=== PATIENT | female | born 1965 ===

== ENCOUNTER 2016-09-19 15:48 | Inpatient (IN) | payer OTHER ==
[~2016-09-19] VITALS: Ht 177.8 cm; Wt 119.7 kg
[2016-09-19] MEDS ORDERED: SODIUM CHLORIDE FLUSH 10ML SYR IVF ONE (16:30)
[2016-09-19 16:43] LABS: BLOOD UREA NITROGEN 17 mg/dL (7-18)
[2016-09-19] MEDS ORDERED: AMPICILLIN/SULBACTAM 3 GM in SODIUM CHLORIDE 0.9% 100 ML IV ONE (17:00)
[2016-09-19] MEDS ORDERED: BACITRACIN ZINC OINT 500U/GM, 0.9 GM ONE (17:11)
[2016-09-19] MEDS ORDERED: LISI-170 PO (19:26)
[2016-09-19] MEDS ORDERED: METF10002 PO (19:26)
[2016-09-19] MEDS ORDERED: long acting insulin SQ (19:26)
[2016-09-19] MEDS ORDERED: VANCOMYCIN PER PHARMACY MC PRN (20:00)
[2016-09-19 20:30] VITALS: BP 139/77
[2016-09-19] MEDS ORDERED: PHARMACOKINETIC CONSULTATION MC ONE (20:30)
[2016-09-19] MEDS ORDERED: PHARMACOKINETIC MONITORING MC PRN (20:30)
[2016-09-19] MEDS: ACETAMINOPHEN 325 MG TABLET PO PRN (22:38)
[2016-09-19] MEDS: SODIUM CHLORIDE 0.9% 1,000 ML IV SCH (22:44)
[2016-09-19] MEDS: VANCOMYCIN 1,800 MG in SODIUM CHLORIDE 0.9% 250 ML IV SCH (22:44)
[2016-09-19] MEDS: ENOXAPARIN 40 MG/0.4 ML SQ SCH (23:04)
[2016-09-19] MEDS: LISINOPRIL 5 MG TABLET PO SCH (23:05)
[2016-09-19] MEDS: INSULIN ASPART 100 UNITS/ML, PEN SQ-INSULIN SCH (23:19)
[2016-09-20] MEDS: PIPERACILLIN/TAZO/PMX 3.375GM 50 ML IV SCH ×4 (01:07→20:12)
[2016-09-20 05:14] LABS: BLOOD UREA NITROGEN 16 mg/dL (7-18)
[2016-09-20 07:57] VITALS: BP 132/72
[2016-09-20] MEDS: INSULIN ASPART 100 UNITS/ML, PEN SQ-INSULIN SCH ×4 (08:08→22:33)
[2016-09-20] MEDS ORDERED: INSULIN DETEMIR 100 UNITS/ML, PEN SQ-INSULIN SCH (09:00)
[2016-09-20] MEDS: LISINOPRIL 5 MG TABLET PO SCH ×2 (10:16→22:25)
[2016-09-20] MEDS: ACETAMINOPHEN 325 MG TABLET PO PRN ×3 (11:10→22:57)
[2016-09-20] MEDS: VANCOMYCIN 1,800 MG in SODIUM CHLORIDE 0.9% 250 ML IV SCH ×2 (11:11→22:56)
[2016-09-20] MEDS: SODIUM CHLORIDE 0.9% 1,000 ML IV SCH ×2 (11:11→22:25)
[2016-09-20 14:00] VITALS: BP 131/74
[2016-09-20 19:29] VITALS: BP 147/81
[2016-09-20] MEDS: ENOXAPARIN 40 MG/0.4 ML SQ SCH (22:25)
[2016-09-21] MEDS: PIPERACILLIN/TAZO/PMX 3.375GM 50 ML IV SCH ×3 (01:44→14:19)
[2016-09-21 04:46] VITALS: BP 151/93
[2016-09-21] MEDS: SODIUM CHLORIDE 0.9% 1,000 ML IV SCH (05:01)
[2016-09-21] MEDS: ACETAMINOPHEN 325 MG TABLET PO PRN (05:01)
[2016-09-21 05:12] LABS: BLOOD UREA NITROGEN 15 mg/dL (7-18)
[2016-09-21 05:15] LABS: ASPARTATE AMINO TRANSFERASE 6 U/L (15-37)
[2016-09-21 07:26] VITALS: BP 138/74
[2016-09-21] MEDS ORDERED: GADOBUTROL 10 MMOL/10 ML PFS ONE (08:28)
[2016-09-21] MEDS ORDERED: INSULIN DETEMIR 100 UNITS/ML, PEN SQ-INSULIN SCH (09:00)
[2016-09-21] MEDS: LISINOPRIL 5 MG TABLET PO SCH (09:04)
[2016-09-21] MEDS: INSULIN ASPART 100 UNITS/ML, PEN SQ-INSULIN SCH ×3 (09:04→17:09)
[2016-09-21] MEDS: VANCOMYCIN 1,800 MG in SODIUM CHLORIDE 0.9% 250 ML IV SCH (09:49)
[2016-09-21 13:20] VITALS: BP 127/73
[2016-09-21] MEDS ORDERED: INSU100I18 SQ-INSULIN (15:12)
[2016-09-21] MEDS ORDERED: LISI5TAB7 PO (15:12)
[2016-09-21] MEDS ORDERED: Vancomycin Per Pharmacy MC (15:12)
[2016-09-21] MEDS ORDERED: TRAM50TA2 PO (15:12)
[2016-09-21] MEDS ORDERED: INSU100I28 SQ-INSULIN (15:12)
[2016-09-21] MEDS ORDERED: PIPE3.373 IV (15:12)
[2016-09-21] MEDS ORDERED: ENOX40SY4 SQ (15:12)
== END 2016-09-21 18:33 | disposition short-term general hospital (02) | DRG 540 ==
LOC: ED 17:27 → EDIP 18:09 → 4NOR 20:07
PROVIDERS: ADMIT Internal Medicine; ATTEND Internal Medicine
DX: M86.8X8 Other osteomyelitis, other site (principal); E44.1 Mild protein-calorie malnutrition; E87.1 Hypo-osmolality and hyponatremia; E66.9 Obesity, unspecified; I11.9 Hypertensive heart disease without heart failure; J45.909 Unspecified asthma, uncomplicated; L03.032 Cellulitis of left toe; M79.662 Pain in left lower leg; Z79.4 Long term (current) use of insulin; E11.42 Type 2 diabetes mellitus with diabetic polyneuropathy; Z87.891 Personal history of nicotine dependence; Z91.048 Other nonmedicinal substance allergy status; Z68.37 Body mass index [BMI] 37.0-37.9, adult
CPT/HCPCS: 36415; 71010; 80048; 80053; 82040; 82947; 82962; 83036; 83605; 85025; 85651; 86140; 87040; 87070; 87077; 87147; 87186; 87205; 87324; 93005; 96365; A9585; J0295; J1650; J1815; J2543; J3370; J7030; J7050